=== PATIENT | male | born 1995 | race Caucasian/White ===

== ENCOUNTER 2017-01-07 06:46 | Day surgery (SDC) | payer BC, MEDICAID ==
[~2017-01-07] VITALS: Ht 190.5 cm; Wt 120.5 kg
--- NOTE | 2017-01-09 09:22 | OR ---
ADMIT: 01/07/2017 RM/LOC: [facility] MR#: [id number] [address] [address] BETH GARCIA [address] [place] [address] Operative/Delivery Room Report SEX: M AGE: 21 : 1995 SURGERY DATE: 01/07/2017 SURGEON: Jose Post MD PREOPERATIVE DIAGNOSIS: Biliary dyskinesia. POSTOPERATIVE DIAGNOSIS: Biliary dyskinesia with chronic cholecystitis. PROCEDURE: Laparoscopic cholecystectomy. SINTERING PRESS OPERATOR: LUCRETIA Harden whose assistance was needed for laparoscopic camera visualization and tissue retraction. ANESTHESIA: General. ESTIMATED BLOOD LOSS: 10 mL. DESCRIPTION OF PROCEDURE: The patient was taken to the operating room and placed supine on the operating room table. General anesthesia was established. The abdomen was prepped and draped in the standard surgical fashion. A 5-mm infraumbilical incision was made in the skin. The fascia was grasped with Josep clamp, and a Veress needle was advanced into the peritoneal cavity. Carbon dioxide was used to insufflate the abdomen to 15 mmHg pressure. The Veress needle was withdrawn, and a 5-mm Optiview trocar was placed. Next, an 11 mm subxiphoid port and 2 right lateral 5 mm ports were placed under visualization. The gallbladder was retracted cephalad. There were numerous adhesions to the gallbladder edge. These were carefully taken down to Calot's triangle. This area was dissected. The cystic duct was skeletonized and the view of safety was obtained. The cystic duct was doubly clipped distally, singly clipped proximally, and divided. The cystic artery was skeletonized, doubly clipped proximally, singly clipped distally, and divided. The gallbladder was excised from the gallbladder fossa with Bovie cautery. It was placed in an EndoCatch bag and removed through the subxiphoid port site. The right upper quadrant was irrigated. There was no evidence of bleeding. No evidence of bile leak, and the clips remained intact on the cystic duct and artery. The ports were removed under visualization without evidence of bleeding. The skin edges were approximated with 4-0 Monocryl in a subcuticular fashion and Dermabond. Local anesthetic was injected at the incisions. Sponge, needle, and instrument counts were correct at the end of the case. The patient tolerated the procedure well and transferred to the recovery area in stable condition. Jose Post MD/ batsheva JOB #: [id number] CC: Jose Post, Attending Physician ADMIT: 01/07/2017 RM/LOC: [facility] MR#: [id number] [address] [place] [id number] BETH GARCIA [facility] [address] [place] [address] Operative/Delivery Room Report SEX: M AGE: 21 : 1995 Gala Monzon Family Physician
== END 2017-01-07 12:20 | disposition home or self-care (01) ==
LOC: SSS 06:46
PROC: 0FT44ZZ Resection of Gallbladder, Percutaneous Endoscopic Approach (ICD-10-PCS; principal; 2017-01-07)
DX: K81.1 Chronic cholecystitis (principal); J45.909 Unspecified asthma, uncomplicated; G47.30 Sleep apnea, unspecified; E66.9 Obesity, unspecified; K21.9 Gastro-esophageal reflux disease without esophagitis; Z88.0 Allergy status to penicillin; Z88.1 Allergy status to other antibiotic agents; Z88.8 Allergy status to other drugs, medicaments and biological substances; Z68.33 Body mass index [BMI] 33.0-33.9, adult; Z98.890 Other specified postprocedural states

== ENCOUNTER 2017-03-01 05:37 | Observation (INO) | payer BC, MEDICAID ==
[~2017-03-01] VITALS: Ht 190.5 cm; Wt 118.0 kg
--- NOTE | ~2017-03-01 | OR ---
ADMIT: 03/01/2017 RM/LOC: [facility] [facility] MR#: [id number] [facility]#: [id number] [address] [address] BETH GARCIA [address] [place] [address] Operative/Delivery Room Report SEX: M AGE: 21 : 1995 SURGERY DATE: 03/01/2017 SURGEON: Ricardo Bah MD PREOPERATIVE DIAGNOSES: 1. Tonsillar hyperplasia, oropharyngeal compromise. 2. Uvula hyperplasia with oropharyngeal compromise. 3. Sleep apnea, obstructive and central. POSTOPERATIVE DIAGNOSES: 1. Tonsillar hyperplasia, oropharyngeal compromise. 2. Uvula hyperplasia with oropharyngeal compromise. 3. Sleep apnea, obstructive and central. OPERATION: Tonsillectomy, partial uvulectomy. ANESTHESIA: General oral endotracheal. BLOOD LOSS: 5 mL. COMPLICATIONS: None. DESCRIPTION OF PROCEDURE: With the patient in supine position, under general oral endotracheal anesthesia, his eyes were taped. Head drapes were placed. The Miri-Alessandro mouth gag was used to expose the oropharynx. Soft palate was examined. There was moderate ptosis. Uvula was elongated and broad at 3+. Tonsils were large, cryptic, contained inspissated cryptic debris. Tonsils were removed in the dissection technique with the Coblator. Each tonsils were grasped with tenaculum, retracted to the midline, dissected directly on the peritonsillar capsule. Bleeding was controlled through the procedure with Coblation. The uvula was then grasped with tenaculum, dependent 3/4th of the uvula was removed with the Coblator and the base was treated with Coblation cautery. There was good hemostasis following the procedure. Oropharynx patency was improved. There was no active bleeding. He tolerated this well. He emerged from general anesthesia in the operating room, extubated in the operating room, and transferred to the recovery room in good condition. Ricardo Bah MD/ batsheva JOB #: [id number] CC: Ricardo Bah, Attending Physician Gala Monzon, Family Physician
[2017-03-02] MEDS ORDERED: ABILIFY10 MG PO (20:48)
[2017-03-02] MEDS ORDERED: ZYRTEC DPS10 MG PO (20:49)
[2017-03-02] MEDS ORDERED: EFFEXOR XR37.5 M1 PO (20:49)
[2017-03-02] MEDS ORDERED: LAMICTAL DPS100 MG PO (20:49)
[2017-03-02] MEDS ORDERED: VITAMIN B-12500 MCG PO (20:50)
[2017-03-02] MEDS ORDERED: ZOLOFT DPS100 MG PO (20:50)
[2017-03-02] MEDS ORDERED: PROTONIX40 MG PO (20:50)
[2017-03-02] MEDS ORDERED: SINGULAIR10 MG PO (20:50)
[2017-03-02] MEDS ORDERED: LORTAB LIQUID D15 ML PO (20:51)
[2017-03-02] MEDS ORDERED: TYLENOL-DP325 MG/10. PO (20:51)
[2017-03-02] MEDS ORDERED: MOTRIN SUS100 MG/5 M PO (20:52)
[2017-03-02] MEDS ORDERED: PHENERGAN6.25 MG/5 PO (20:53)
[2017-03-02] MEDS ORDERED: CLEOCIN HCL300 MG PO (20:53)
--- NOTE | 2017-03-05 10:17 | HP ---
ADMIT: 03/01/2017 RM/LOC: [facility] MR#: [id number] [address] [address] BETH GARCIA [address] [place] [address] History and Physical SEX: M AGE: 21 : 1995 DATE OF SERVICE: HISTORY OF PRESENT ILLNESS: Beth is 21 years old. He is admitted for tonsillectomy and reduction of uvula and treatment of oropharyngeal obstruction. He has sleep apnea, both obstructive and central, and has had only limited response to BiPAP. Because of the obstructive appearance to the oropharynx, we discussed surgical intervention to remove tonsils, reduce the bulk of the uvula in an effort to improve oropharyngeal patency and improve nighttime sleep pattern. The rationale for the surgery as well as the risks including risks of anesthesia, postop course including risks of dehydration due to odynophagia, and chance of both postop bleeding has been discussed in detail with Beth and his mother. They are in good understanding and acceptance of the risks, and Beth was admitted for general anesthesia. MEDICATIONS: Medications prior: 1. Aripiprazole. 2. Cetirizine. 3. Pantoprazole. 4. Montelukast. 5. Lamotrigine. 6. Vitamin B12. 7. Venlafaxine. ALLERGY: Penicillin, sulfa, Cefzil. PAST MEDICAL HISTORY: Cholecystectomy, December 2016. REVIEW OF SYSTEMS: Positive for history of lower respiratory bronchoconstriction. 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 He was premature at . He has lower respiratory bronchoconstriction, hypertension, seizure disorder, stomach ulcers, and Yanet-Opwdyemba-Xxbxv syndrome. 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 SOCIAL HISTORY: He drinks caffeine in the form of soda. He does not drink alcohol, nor does he use tobacco. FAMILY HISTORY: No known anesthetic complications. No coagulopathies. PHYSICAL EXAMINATION: GENERAL: A 21-year-old, cooperative during exam. HEENT: Pupils are equal. Conjunctivae clear. No proptosis. Extraocular movements intact. Ears; canals, TMs, middle ears normal. Nose; airway is patent bilaterally. Septum has very slight deviation in left. There is no mucus, purulence, polyps, or lesions. Mouth and pharynx, tonsils large, 3+ in size. They abut the uvula and nearly touch the midline. They were cryptic but no acute exudate. Uvula is elongated and bulky at 3+, and there is moderate palpable ptosis. Tongue; Palafox level 3. NECK: No masses, adenopathy, thyromegaly, nodules, or asymmetry. LUNGS: Clear. No wheeze. ADMIT: 03/01/2017 RM/LOC: [facility] MR#: [id number] [address] [place] [id number] BETH GARCIA [address] [place] [address] History and Physical SEX: M AGE: 21 : 1995 HEART: Rhythm regular. EXTREMITIES: No edema or cyanosis. IMPRESSION: 1. Tonsillar hyperplasia with oropharyngeal compromise. 2. Uvula hyperplasia. 3. History of sleep apnea, central and obstructive, BiPAP-dependent. 4. History of anoxic brain injury during childhood. 5. History of Zcghg-Dhqvktdgg-Sedsi syndrome requiring cardiac ablation. 6. History of bronchoconstriction. 7. History of hypertension. 8. History of seizure disorder. PLAN: Tonsillectomy, partial uvulectomy. Ricardo Bah MD/ batsheva JOB #: [id number] CC: Ricardo Bah, Attending Physician UNKNOWN, Family Physician
== END 2017-03-02 12:30 | disposition home or self-care (01) ==
LOC: SSS 05:37 → 6PED 08:12 → SSS 15:08 → 6PED 03-02 12:30
PROVIDERS: ADMIT Otolaryngology
DX: J35.1 Hypertrophy of tonsils (principal); J39.2 Other diseases of pharynx; K13.79 Other lesions of oral mucosa; G47.33 Obstructive sleep apnea (adult) (pediatric); G40.909 Epilepsy, unspecified, not intractable, without status epilepticus; Z88.0 Allergy status to penicillin; Z88.2 Allergy status to sulfonamides; Z90.49 Acquired absence of other specified parts of digestive tract